=== PATIENT | female | born 1955 | race Caucasian/White ===

== ENCOUNTER → 2020-06-30 11:52 | Outpatient (BNVA) | payer OTHER, SELFPAY | PROVIDERS: Family Provider Family Medicine; Visit Provider Nurse Practitioner Family | DX: Z20.828 Contact with and (suspected) exposure to other viral communicable diseases (principal) | CPT/HCPCS: 87635 ==

== ENCOUNTER 2020-07-13 07:59 | Outpatient (CLI) | payer OTHER, SELFPAY ==
--- NOTE | 2020-07-13 08:03 | MM_ITS ---
WS: [id number] BILATERAL DIGITAL SCREENING MAMMOGRAPHY WITH CAD CLINICAL INFORMATION: SCREENING HISTORY: Screening mammogram. No current complaints. COMPARISON: TECHNIQUE: Bilateral CC and MLO views. FINDINGS: The breasts are composed of heterogeneous fibroglandular density tissue, which can limit the detectio n of small underlying mass lesions. 6 mm asymmetric density posterior depth at the chest wall best se en on the cc view outer right breast. Recommend spot compression views and ultrasound for further ibis luation. Left breast is unchanged. Incidental benign calcifications. MM/[place] [id number] IMPRESSION: BI-RADS: 0-Incomplete: Need additional imaging evaluation FOLLOW UP: Need Additional Imaging RECOMMEND DIAGNOSTIC MAMMOGRAPHY WITH SPOT COMPRESSION VIEWS AND ULTRASOUND RIG HT BREAST
== END 2020-07-13 08:00 | disposition home or self-care (01) ==
PROVIDERS: PCP Family Medicine; Visit Provider Family Medicine
DX: Z12.31 Encounter for screening mammogram for malignant neoplasm of breast (principal); N64.89 Other specified disorders of breast
CPT/HCPCS: 77067

== ENCOUNTER 2020-08-08 12:02 | Outpatient (CLI) | payer OTHER, SELFPAY ==
--- NOTE | 2020-08-08 12:08 | US_ITS ---
WS: [id number] RIGHT DIGITAL MAMMOGRAPHY WITH CAD CLINICAL INFORMATION: ABNORMAL MAMMOGRAM COMPARISON: July 13, 2020 TECHNIQUE: 2 views of the right breast were obtained. FINDINGS: The right breast is composed of heterogeneous fibroglandular density tissue, which can limit the dete ction of small underlying mass lesions. Stable 6 mm asymmetric density posterior depth chest wall bes t seen on the cc view. This is unchanged. Ultrasound is pending. ULTRASOUND BREAST RIGHT TECHNIQUE: Ultrasound right breast focused area of concern. CLINICAL INFORMATION: ABNORMAL MAMMOGRAM COMPARISON: None. FINDINGS: Ultrasound right breast at the 6 clock position.. Hypoechoic small lesion at the 8:00 position consis tent with an incidental cyst with through transmission. This measures 4 x 3 mm. This is benign. No ot her suspicious abnormality. US/US breast RT limited* [id number] IMPRESSION: BI-RADS: 2-Benign FOLLOW UP: 1 Year Follow-up Recommend return to annual screening mammography.
== END 2020-08-08 12:03 | disposition home or self-care (01) ==
LOC: RADSHAW 12:07
PROVIDERS: PCP Family Medicine; Visit Provider Family Medicine
DX: R92.8 Other abnormal and inconclusive findings on diagnostic imaging of breast (principal)
CPT/HCPCS: 76642; 77065

== ENCOUNTER 2020-09-13 08:52 | Outpatient (CLI) | payer OTHER, SELFPAY ==
--- NOTE | 2020-09-13 09:15 | FL_ITS ---
WS: [id number] ESOPHAGRAM WITH FLUOROSCOPY HISTORY: Dysphagia and choking. COMPARISON: None available. FLUOROSCOPY TIME: 1.7 minutes. Esophagus and swallowing function: Patient swallowed the barium mixture without difficulty. No strict ures or mucosal abnormalities are identified. There are osteophytes encroaching into the posterior ce rvical esophagus seen on the lateral projection at C5-C7. Patient swallowed the barium tablet without difficulty. Gastroesophageal reflux: There is significant reflux to the level of the clavicular heads. Hiatal hernia: Moderate-sized reducible hiatal hernia. FL/FL barium swallow [id number] IMPRESSION: 1. Large amount of gastroesophageal reflux to the clavicular heads. 2. Moderate reducible hiatal hernia.
== END 2020-09-13 08:53 | disposition home or self-care (01) ==
LOC: RADWPI 08:56
PROVIDERS: PCP Family Medicine; Visit Provider Otolaryngology
DX: T17.908A Unspecified foreign body in respiratory tract, part unspecified causing other injury, initial encounter (principal); R13.10 Dysphagia, unspecified; K21.9 Gastro-esophageal reflux disease without esophagitis; X58.XXXA Exposure to other specified factors, initial encounter; K44.9 Diaphragmatic hernia without obstruction or gangrene
CPT/HCPCS: 74220

== ENCOUNTER 2020-12-14 23:12 | Emergency (ER) | payer OTHER, SELFPAY ==
[2020-12-14 23:14] VITALS: BP 164/92; PULSE 86; RESP 22; TEMP 36.8; O2SAT 97; BMI 34.2
--- NOTE | 2020-12-14 23:35 | W.ED.ABDPA2 ---
HPI - Abdominal Pain General: Chief Complaint: Abdominal Pain Stated Complaint: stomach pain Time Seen by Provider: 12/14/20 23:14 Source: patient Mode of arrival: ambulatory Limitations: no limitations History of Present Illness: HPI narrative: Patient is a nice 65-year-old female who presents to ED today along with her for complaints of epigastric abdominal pain. Patient tells me she began noticing some epigastric pain around 4pm when she got off work. She states by the time she got home around 4:30 pain had become quite uncomfortable. She states she does have a history of acid reflux that she believes is secondary to a hiatal hernia so treated with antacids without relief. She is reporting pain that radiates up into her substernal chest (as she points along her esophagus). She has nausea with no vomiting. No changes to bowel movements. No fevers. No previous abdominal surgeries. She feels like her acid reflux is progressively worsening. Denies shortness of breath or difficulty breathing. MD elicited complaint: abdominal pain Pertinent past history: other (acid reflux) Onset (ago): hour(s) Pain Consistency: constant Location: Epigastric Severity: moderate Quality: sharp Migration to: other (chest) Exacerbating factors: nothing Relieving factors: nothing Associated Symptoms: Reports no associated symptoms and nausea; Denies change in stool character, chills, diarrhea, dysuria, fever(s), heartburn, hematemesis, syncope and vomiting Treatments prior to arrival: antacids Related Data: Patient : No Review of Systems Const: Denies: fever(s), chills, body aches, fatigue or malaise Eyes: Denies: change in vision or blurry vision ENMT: Denies: throat pain or odynophagia Card: Reports: chest pain; Denies: palpitations, irregular heart rhythm, edema, swelling of feet/ankles, lightheadedness, syncope, pre-syncope, dyspnea on exertion, orthopnea, leg pain with exertion or acrocyanosis Resp: Denies: dyspnea, productive cough or pain on inspiration GI: Reports: abdominal pain and nausea; Denies: vomiting, hematemesis, heartburn, diarrhea or change in stool character : Denies: flank pain or dysuria Musc: Denies: neck pain, back pain or joint pain Skin/Breast: Denies: rash Neuro: Denies: headache(s), numbness in extremities, weakness in extremities or sensory changes PFS ED PFSH: Medical History History of gastroesophageal reflux (GERD) Family History Mother Hypertension Diabetes Denies family history of Dementia Social History Smoking and tobacco status: never smoked Alcohol intake: never Special ema needs: No Physical Exam Const: COMMON NORMALS: no acute distress, average body habitus, patient oriented x3, no limitations and alert GENERAL APPEARANCE: cooperative ORIENTATION/CONSCIOUSNESS: Yes awake Chest: COMMONS NORMALS: normal inspection of the chest and normal palpation of entire chest wall Resp: COMMON NORMALS: normal respiratory effort and clear to auscultation bilaterally AUSCULTATION: clear to auscultation bilaterally Cardio: COMMON NORMALS: regular rate and regular rhythm RATE: regular rate RHYTHM: regular rhythm GI: COMMON NORMALS: Normal to inspection, nondistended, normoactive bowel sounds present, Soft to palpation, No hepatosplenomegaly present and no masses PALPATION: Yes Soft to palpation, Yes Tenderness to palpation present (GI) (upper abdomen; mild RUQ but mainly to epigastric) and Yes No hepatosplenomegaly present : COMMON NORMALS: Yes no CVA tenderness BLADDER/KIDNEY EXAM: Yes no CVA tenderness Back/Pelvis: COMMON NORMALS: no CVA tenderness Neuro: COMMON NORMALS: patient oriented x3 SENSORIUM/ORIENTATION: Yes alert Course ED course: Patient states she feels much better after IV meds and GI cocktail. Still awaiting a few labs and CT imaging. Vital Signs: Vital signs: Vital Signs Temperature 98.2 F 12/14/20 23:14 Pulse Rate 84 12/15/20 03:39 Respiratory Rate 19 H 12/15/20 03:39 Blood Pressure 137/80 12/15/20 03:39 Pulse Oximetry 97 12/15/20 03:39 MDM - Abdominal Pain MDM Narrative: Medical decision making narrative: Patient feels much better after IV pain meds/nausea meds and a GI cocktail. Physical exam reveals most of her tenderness to the epigastric region. She has some very mild RUQ pain without guarding. CT of her abdomen and pelvis shows her hiatal hernia, some incidental findings that she was made aware of, and possibly some pericholecystic fluid. Radiologist stated an acalculous cholecystitis cannot be excluded therefore US gallbladder was obtained. According to US tech her gallbladder was slightly edematous but he did not visualize any sludge, thickened wall, or ductal dilation and states her gallbladder did not appear acutely infected. Clincally her symptoms sound more related to her hiatal hernia/gastritis/GERD. Her vitals are stable. Her white count is 10.8. She has normal LFTs. Cardiac workup initiated due to age and epigastric pain radiating into chest-this was negative. I will go ahead and set patient up with general surgery follow up for her hiatal hernia and the possibility of maybe some biliary colic. Return to ED precautions given. She takes protonix daily. Will add some pepcid and carafate to see if maybe this will help reduce some of her discomfort. Dietary changes/avoidance of certain foods discussed. Lab Data: Attestation: I reviewed the patient's lab results. Labs: Lab Results 12/15/20 12/15/20 12/15/20 Range/Units 00:19 00:19 00:19 WBC 10.8 H (4.0-10.0) 10^3/ uL RBC 5.10 (4.1-5.3) 10^6/u L Hgb 12.6 (11.5-15.3) g/dL Hct 41.3 (37.0-47.0) % MCV 81.0 (81-99) fL MCH 24.7 L (28.0-34.0) pg MCHC 30.5 (30.0-36.0) g/dL RDW 14.3 (12.1-15.1) % Plt Count 385 (130-400) 10^3/c mm MPV 11.0 H (7.4-10.4) fL Neut % (Auto) 68.9 % Lymph % (Auto) 20.9 % [place] % (Auto) 7.4 % Eos % (Auto) 1.9 % Baso % (Auto) 0.6 % Neut # (Auto) 7.43 (1.8-7.7) 10^3/u L Lymph # (Auto) 2.3 (0.8-4.8) 10^3/u L [place] # (Auto) 0.8 (0.2-0.9) 10^3/u L Eos # (Auto) 0.2 (0.0-0.8) 10^3/u L Baso # (Auto) 0.1 (0.0-0.1) 10^3/u L Nucleated RBC % (a uto) 0 % Nucleated RBCs # 0.0 /100WBC Sodium Cancelled Potassium Cancelled Chloride Cancelled Carbon Dioxide Cancelled Anion Gap Cancelled BUN Cancelled Creatinine Cancelled GFR Calculation Cancelled Glucose Cancelled Calculated Osmolal ity Cancelled Calcium Cancelled Total Bilirubin Cancelled AST Cancelled ALT Cancelled Alkaline Phosphata se Cancelled Troponin T Baselin e Cancelled Total Protein Cancelled Albumin Cancelled Globulin Cancelled Lipase Cancelled Urine Color (Yellow) Urine Appearance (CLEAR) Urine pH (5-7) Ur Specific Gravit y (1.005-1.030) Urine Protein (Negative) Urine Glucose (UA) (Normal) Urine Ketones (Negative) Urine Blood (Negative) Urine Nitrate (Negative) Urine Bilirubin (Negative) Urine Urobilinogen (Negative) mg/dL Ur Leukocyte Jailyn ase (Negative) 12/15/20 12/15/20 12/15/20 Range/Units 00:19 01:03 01:03 WBC (4.0-10.0) 10^3/ uL RBC (4.1-5.3) 10^6/u L Hgb (11.5-15.3) g/dL Hct (37.0-47.0) % MCV (81-99) fL MCH (28.0-34.0) pg MCHC (30.0-36.0) g/dL RDW (12.1-15.1) % Plt Count (130-400) 10^3/c mm MPV (7.4-10.4) fL Neut % (Auto) % Lymph % (Auto) % [place] % (Auto) % Eos % (Auto) % Baso % (Auto) % Neut # (Auto) (1.8-7.7) 10^3/u L Lymph # (Auto) (0.8-4.8) 10^3/u L [place] # (Auto) (0.2-0.9) 10^3/u L Eos # (Auto) (0.0-0.8) 10^3/u L Baso # (Auto) (0.0-0.1) 10^3/u L Nucleated RBC % (a uto) % Nucleated RBCs # /100WBC Sodium 137 Potassium 4.2 Chloride 103 Carbon Dioxide 22 Anion Gap 16.2 BUN 25 H Creatinine 1.0 H GFR Calculation 56.0 L Glucose 128 H Calculated Osmolal ity 290 Calcium 8.9 Total Bilirubin 0.3 AST 16 ALT 13 Alkaline Phosphata se 93 Troponin T Baselin e 6 Total Protein 7.3 Albumin 4.1 Globulin 3.2 Lipase 48 Urine Color Yellow (Yellow) Urine Appearance Clear (CLEAR) Urine pH 7 (5-7) Ur Specific Gravit y 1.010 (1.005-1.030) Urine Protein Neg (Negative) Urine Glucose (UA) Norm (Normal) Urine Ketones Negative (Negative) Urine Blood Neg (Negative) Urine Nitrate Negative (Negative) Urine Bilirubin Neg (Negative) Urine Urobilinogen Norm (Negative) mg/dL Ur Leukocyte Jailyn ase Negative (Negative) Imaging Data ^: CXR: Radiologist's impression: [address] [id number] ReportSigned Patient: Blanca Amanda #: [id number]: 1955[facility][id number]/Sex: 65 / FADM Date: 12/14/20Loc: ERRoom/Bed:Attending Dr: Ordering Provider/Ordering MD: Radha Wheat Date of Service: 12/15/20 Procedure(s): XR chest 1V portable [id number] Accession Number(s): [id number] Report Number: [id number] PROCEDURE INFORMATION: Exam: XR Chest Exam date and time: 12/15/2020 12:48 AM Age: 65 years old Clinical indication: Patient HX: Chest pressure. Epigastric pain. ; Additional info: Chest pain TECHNIQUE: Imaging protocol: XR of the chest. Views: 1 view. COMPARISON: No relevant prior studies available. FINDINGS: Lungs: A shallow breath is been obtained with some crowding of the pulmonary vasculature seen as result. Pleural spaces: Unremarkable. No pleural effusion. No pneumothorax. Heart/Mediastinum: Unremarkable. No cardiomegaly. Bones/joints: Unremarkable. XR/XR chest 1V portable [id number] IMPRESSION: There are no acute chest findings. Dictated By:Barak Parker MDSigned By:Barak Parker MDSigned Date/Time:12/15/20119DD/ 012 US gallbladder: My impression: Per Srinivasan Martin, US tech-mildly edematous gallbladder but nothing to suggest acute cholecystitis, no ductal dilation CT Abd/Pel: Radiologist's impression: [address] [id number] [address] Scan Report Signed Patient: Blanca Amanda Unit #: [id number] : 1955 Age/Sex: 65 / F ADM Date: 12/14/20 Loc: ER Room/Bed: Attending Dr: Ordering Provider/Ordering MD: Radha Wheat Date of Service: 12/14/20 Procedure(s): CT abdomen pelvis w con* [id number] Accession Number(s): [id number] Report Number: [id number] PROCEDURE INFORMATION: Exam: CT Abdomen And Pelvis With Contrast Exam date and time: 12/14/2020 12:16 AM Age: 65 years old Clinical indication: Abdominal pain; Prior surgery; Surgery type: Tubal; Patient HX: Epigastric pain; Additional info: Upper abdominal pain TECHNIQUE: Imaging protocol: Computed tomography of the abdomen and pelvis with contrast. Radiation optimization: All CT scans at this facility use at least one of these dose optimization techniques: automated exposure control; mA and/or kV adjustment per patient size (includes targeted exams where dose is matched to clinical indication); or iterative reconstruction. Contrast material: OMNI 300; Contrast volume: 95 ml; Contrast route: INTRAVENOUS (IV); COMPARISON: No relevant prior studies available. RADIATION DOSE METRICS: Total DLP (mGy-cm): 1795.84 FINDINGS: Lungs: There are some strandy and patchy opacities present in the lung bases bilaterally likely representing atelectasis or parenchymal scarring. However, a bilateral basilar pneumonitis cannot be entirely excluded. Liver: An 8.5 mm hypoattenuation lesions seen in the hepatic dome compatible with a simple cyst. Gallbladder and bile ducts: Some low attenuation seen adjacent to the gallbladder possibly representing some pericholecystic fluid. There is no evidence for gallstones. However, acalculous cholecystitis cannot be excluded. Pancreas: Normal. No ductal dilation. Spleen: Normal. No splenomegaly. Adrenal glands: A tiny low-attenuation 7 x 7 x 11 mm nodularity is seen within the left adrenal gland. Kidneys and ureters: Normal. No hydronephrosis. Stomach and bowel: There is a hiatal hernia present measuring 5.1 cm transverse dimension containing a small portion of the proximal stomach. Appendix: The appendix is visualized and is normal in configuration. Intraperitoneal space: Unremarkable. No free air. No significant fluid collection. Vasculature: Unremarkable. No abdominal aortic aneurysm. Lymph nodes: Unremarkable. No enlarged lymph nodes. Urinary bladder: Unremarkable as visualized. Reproductive: Unremarkable as visualized. Bones/joints: Unremarkable. No acute fracture. Soft tissues: There is a small Bochdalek's hernia seen in the right posteromedial costophrenic recess containing fat. CT/CT abdomen pelvis w con* [id number] IMPRESSION: 1. Low attenuation seen surrounding the gallbladder possibly representing some pericholecystic fluid. Acalculous cholecystitis cannot be excluded. 2. Hiatal hernia containing a small portion of the proximal stomach 3. Probable simple hepatic cyst in the hepatic dome measuring 8.5 mm. No further workup needed. 4. Tiny low-attenuation left adrenal nodularity measuring up to 11 mm. Consider 12 month follow-up adrenal CT. (Reference: Mary) 5. Strandy patchy opacity seen in the lung bases likely represents atelectasis versus parenchymal scarring. However, a basilar pneumonitis cannot be entirely excluded. 6. Small Bochdalek's hernia seen in the right posteromedial costophrenic recess containing fat. REFERENCES: Mary AYALA, et al. Management of Incidental Adrenal Masses: A White Paper of the ACR Incidental Findings Committee. J Am Anel Radiol. 2017;14(8):8223-7140. Radiation Dose CTDIVOL = (mGy): DLP = 1795.84 (mGy-cm) Dictated By: Barak Parker MD Signed By: Barak Parker MD Signed Date/Time: 12/15/208 DD/ 5 EKG Data ^: EKG 1: EKG interpretation date: 05/14/21 EKG interpretation time: 23:21 Interpretation: Sinus rhythm Rate [address] elevation or depression changes noted Signed off by Dr. Green Discharge Plan Discharge Patient Disposition: Home Clinical Impression: Hiatal hernia Gastritis Qualifiers: Gastritis type: other gastritis Chronicity: acute Gastritis bleeding: without bleeding Qualified Code(s): K29.00 - Acute gastritis without bleeding Condition: Stable Prescriptions: New Carafate 1 gram tablet 1 g PO TID 28 Days Qty: 84 RF: 0 Pepcid 20 mg tablet 20 mg PO BID 28 Days Qty: 56 RF: 0 hydrocodone-acetaminophen 5-325 mg tablet 1 tab PO Q6H PRN (Reason: pain) Qty: 10 RF: 0 No Action levothyroxine [Euthyrox] 50 mcg tablet 50 mcg PO DAILY RF: 0 enalapril maleate 20 mg tablet 20 mg PO DAILY RF: 0 pantoprazole [Protonix] 40 mg tablet,delayed release (DR/EC) 40 mg PO DAILY RF: 0 montelukast [Singulair] 10 mg tablet 10 mg PO DAILY RF: 0 sertraline [Zoloft] 100 mg tablet 100 mg PO DAILY RF: 0 fluticasone propionate 50 mcg/actuation spray,suspension 2 spray intranasal DAILY 180 Days Qty: 16 RF: 5 Discharge Orders: Discharge ED (Routine); Ordered 12/15/20 Ordered By: Radha Wheat Referrals: Ton Aguirre DO [Primary Care Provider] - Patient Instructions: Hiatal Hernia (ED), Gastritis (ED), Opioid Safety Activity Restrictions/Additional Instructions: [facility] is committed to fighting the nationwide opiate epidemic. We are providing ALL patients with information regarding opiate safety. If you received opiate pain medication during your stay or if you received a prescription for opiate pain medication-please review this handout. If not, you may disregard. Thank you. As we discussed we will have case management set you up to see general surgery in regards to your hiatal hernia as well as possible biliary colic. As we discussed it did not appear like your gallbladder was acutely infected today. Continue your Protonix. We will add Pepcid and Carafate to try to help with your epigastric pain. You need to return to the emergency department for worsening or uncontrollable pain, severe shortness of breath or difficulty breathing, fevers, or any other concerns you may have. I hope you begin to feel better soon. Coding Level of Care Code ED Manager Of Case Management for [place] Fwd Exam Detailed
--- NOTE | 2020-12-14 23:41 | CTR_ITS ---
PROCEDURE INFORMATION: Exam: CT Abdomen And Pelvis With Contrast Exam date and time: 12/14/2020 12:16 AM Age: 65 years old Clinical indication: Abdominal pain; Prior surgery; Surgery type: Tubal; Patient HX: Epigastric pain; Additional info: Upper abdominal pain TECHNIQUE: Imaging protocol: Computed tomography of the abdomen and pelvis with contrast. Radiation optimization: All CT scans at this facility use at least one of these dose optimization techniques: automated exposure control; mA and/or kV adjustment per patient size (includes targeted exams where dose is matched to clinical indication); or iterative reconstruction. Contrast material: OMNI 300; Contrast volume: 95 ml; Contrast route: INTRAVENOUS (IV); COMPARISON: No relevant prior studies available. RADIATION DOSE METRICS: Total DLP (mGy-cm): 1795.84 FINDINGS: Lungs: There are some strandy and patchy opacities present in the lung bases bilaterally likely representing atelectasis or parenchymal scarring. However, a bilateral basilar pneumonitis cannot be entirely excluded. Liver: An 8.5 mm hypoattenuation lesions seen in the hepatic dome compatible with a simple cyst. Gallbladder and bile ducts: Some low attenuation seen adjacent to the gallbladder possibly representing some pericholecystic fluid. There is no evidence for gallstones. However, acalculous cholecystitis cannot be excluded. Pancreas: Normal. No ductal dilation. Spleen: Normal. No splenomegaly. Adrenal glands: A tiny low-attenuation 7 x 7 x 11 mm nodularity is seen within the left adrenal gland. Kidneys and ureters: Normal. No hydronephrosis. Stomach and bowel: There is a hiatal hernia present measuring 5.1 cm transverse dimension containing a small portion of the proximal stomach. Appendix: The appendix is visualized and is normal in configuration. Intraperitoneal space: Unremarkable. No free air. No significant fluid collection. Vasculature: Unremarkable. No abdominal aortic aneurysm. Lymph nodes: Unremarkable. No enlarged lymph nodes. Urinary bladder: Unremarkable as visualized. Reproductive: Unremarkable as visualized. Bones/joints: Unremarkable. No acute fracture. Soft tissues: There is a small Bochdalek's hernia seen in the right posteromedial costophrenic recess containing fat. CT/CT abdomen pelvis w con* [id number] IMPRESSION: 1. Low attenuation seen surrounding the gallbladder possibly representing some pericholecystic fluid. Acalculous cholecystitis cannot be excluded. 2. Hiatal hernia containing a small portion of the proximal stomach 3. Probable simple hepatic cyst in the hepatic dome measuring 8.5 mm. No further workup needed. 4. Tiny low-attenuation left adrenal nodularity measuring up to 11 mm. Consider 12 month follow-up adrenal CT. (Reference: Mary) 5. Strandy patchy opacity seen in the lung bases likely represents atelectasis versus parenchymal scarring. However, a basilar pneumonitis cannot be entirely excluded. 6. Small Bochdalek's hernia seen in the right posteromedial costophrenic recess containing fat. REFERENCES: Mary AYALA, et al. Management of Incidental Adrenal Masses: A White Paper of the ACR Incidental Findings Committee. J Am Anel Radiol. 2017;14(8):8828-7236. Radiation Dose CTDIVOL = (mGy): DLP = 1795.84 (mGy-cm)
[2020-12-15] MEDS: lidocaine 2% viscous 15 ML, aluminum-mag hydrox-simethicon 30 ML, sucralfate oral liq 1 GM PO (00:20)
[2020-12-15] MEDS: morphine 4 mg/mL SDV 1 mL IVP (00:23)
[2020-12-15] MEDS: ondansetron 2 mg/ML SDV 2 mL 4 MG IVP (00:23)
[2020-12-15 00:36] LABS: Add Urine Microscopic? NO; Charge for UA Resulting for Rev
[2020-12-15 00:38] LABS: Basophils # 0.1 10^3/uL (0.0-0.1); Basophils % 0.6 %; Eosinophils # 0.2 10^3/uL (0.0-0.8); Eosinophils % 1.9 %; Hematocrit 41.3 % (37.0-47.0); Hemoglobin 12.6 g/dL (11.5-15.3); Lymphocytes # 2.3 10^3/uL (0.8-4.8); Lymphocytes % 20.9 %; Mean Corpuscular HGB Conc 30.5 g/dL (30.0-36.0); Mean Corpuscular Hemoglobin 24.7 pg (28.0-34.0); Monocytes # 0.8 10^3/uL (0.2-0.9); Monocytes % 7.4 %; Neutrophils # 7.43 10^3/uL (1.8-7.7); Neutrophils % 68.9 %; Nucleated Red Blood Cells % 0 %; Platelet Count 385 10^3/cmm (130-400); Red Cell Distribution Width 14.3 % (12.1-15.1); White Blood Count 10.8 10^3/uL (4.0-10.0)
[2020-12-15 00:45] LABS: Bilirubin Urine Neg (Negative); Blood Urine Neg (Negative); Glucose Urine UA Norm (Normal); Ketones Urine Negative (Negative); Leukocyte Esterase Urine Negative (Negative); Nitrate Urine Negative (Negative); Protein Urine Neg (Negative); Urine Appearance Clear (CLEAR); Urine Color Yellow (Yellow); Urobilinogen Urine Norm (Negative); pH Urine 7 (5-7)
--- NOTE | 2020-12-15 00:46 | XRR_ITS ---
PROCEDURE INFORMATION: Exam: XR Chest Exam date and time: 12/15/2020 12:48 AM Age: 65 years old Clinical indication: Patient HX: Chest pressure. Epigastric pain. ; Additional info: Chest pain TECHNIQUE: Imaging protocol: XR of the chest. Views: 1 view. COMPARISON: No relevant prior studies available. FINDINGS: Lungs: A shallow breath is been obtained with some crowding of the pulmonary vasculature seen as result. Pleural spaces: Unremarkable. No pleural effusion. No pneumothorax. Heart/Mediastinum: Unremarkable. No cardiomegaly. Bones/joints: Unremarkable. XR/XR chest 1V portable [id number] IMPRESSION: There are no acute chest findings.
[2020-12-15 00:57] VITALS: BP 126/79; PULSE 77; RESP 18; O2SAT 95
[2020-12-15 01:24] LABS: Alanine Aminotransferase 13 U/L (0-33); Albumin Level 4.1 g/dL (3.5-5.2); Alkaline Phosphatase 93 IU/L (35-105); Anion Gap 16.2 (5-19); Aspartate Amino Transferase 16 U/L (0-32); Blood Urea Nitrogen 25 mg/dL (8-23); Calcium 8.9 mg/dL (8.5-10.5); Carbon Dioxide 22 mmol/L (22-29); Chloride 103 mmol/L (98-107); Globulin 3.2 g/dL (1.3-4.6); Glucose 128 mg/dL (65-115); Lipase 48 U/L (13-60); Osmolality Calculated 290 mOsm/kg (285-295); Potassium 4.2 mmol/L (3.5-5.1); Sodium 137 mmol/L (136-145); Total Bilirubin 0.3 mg/dL (0.15-1.2); Total Protein 7.3 g/dL (6.6-8.7)
[2020-12-15 01:29] LABS: Troponin(5th) Baseline 6 ng/L (0-10)
[2020-12-15] MEDS: iohexol 300 mg/mL 100 mL Btl IV (01:39)
--- NOTE | 2020-12-15 02:10 | USR_ITS ---
PROCEDURE INFORMATION: Exam: US Abdomen, Limited; Right Upper Quadrant Exam date and time: 12/15/2020 2:31 AM Age: 65 years old Clinical indication: Abdominal pain; Acute; Additional info: Ruq pain; Abnormal CT gallbladder finding TECHNIQUE: Imaging protocol: US abdomen. Real time ultrasound with image documentation. Limited exam focused on the right upper quadrant. COMPARISON: CT abdomen pelvis w con* [id number] 12/15/2020 1:37 AM FINDINGS: Liver: Normal. No masses. Gallbladder: There is moderate gallbladder wall thickening measuring 5.2 mm. There is no evidence for gallstones. There is a positive sonographic Stallworth sign elicited however. These findings could represent acalculous cholecystitis. Common bile duct: Normal. No stones. No dilation. Pancreas: Visualized pancreas is unremarkable. Right kidney: Normal. No mass. No hydronephrosis. US/US gall bladder [id number] IMPRESSION: Thickened gallbladder wall measuring up to 5.2 mm and positive sonographic Stallworth sign, findings that could represent acalculous cholecystitis.
--- NOTE | 2020-12-15 03:37 | PC.NURSE ---
EKG completed in triage and given to Dr. Green
[2020-12-15 03:39] VITALS: BP 137/80; PULSE 84; RESP 19; O2SAT 97
--- NOTE | 2020-12-17 09:25 | DCPLANNER ---
authorization manager had message to schedule a follow up appointment for patient with general surgery for hiatal hernia, possible biliary colic. authorization manager emailed patients information to both Dorie and Kirsten at [facility] General Surgery. Patients information will be printed and reviewed. Clinic will call patient with appointment information.
--- NOTE | 2020-12-18 07:56 | DCPLANNER ---
Patient has a follow up appointment scheduled for Friday, December 25, [address] at 8:[address] River. Clinic will call patient with appointment information.
--- NOTE | 2021-01-17 15:09 | DCPLANNER ---
Patient had a follow up appointment scheduled for 12.25.[address] River at general surgery - patient did attend appointment.
== END 2020-12-15 03:39 | disposition home or self-care (01) ==
PROVIDERS: Emergency Medicine; Emergency Provider Physician Assistant; PCP Family Medicine
DX: K44.9 Diaphragmatic hernia without obstruction or gangrene (principal); K29.00 Acute gastritis without bleeding
CPT/HCPCS: 36415; 71045; 74177; 76705; 80053; 81003; 83690; 84484; 85025; 96374; 96375; 99284; J2270; J2405; Q9967

== ENCOUNTER → 2021-01-02 13:11 | Outpatient (BNVA) | payer OTHER, SELFPAY | PROVIDERS: PCP Family Medicine; Visit Provider Surgery | DX: K81.9 Cholecystitis, unspecified (principal); Z20.822 Contact with and (suspected) exposure to COVID-19 | CPT/HCPCS: 87635 ==

== ENCOUNTER 2021-01-07 07:28 | Day surgery (SDC) | payer OTHER, SELFPAY ==
[2021-01-04 14:56] VITALS: BMI 34.0
[2021-01-07] VITALS (14 sets, daily range): BP systolic 87–145; BP diastolic 49–89; PULSE 51–90; RESP 12–20; TEMP 36.1–37.1; O2SAT 91–98
--- NOTE | 2021-01-07 07:54 | W.PM.OPSUD ---
Surgery/Procedure H&P Update DATE OF PROCEDURE: January 07, 2021 DATE H&P PERFORMED: 12/25/20 H&P UPDATE INFORMATION: I have reviewed H&P completed within last 30 days, I have examined patient prior to procedure and No changes to prior documentation PREOP DIAGNOSIS: Acalculous cholecystitis, dysphagia PLANNED PROCEDURE: Operation Date: 01/07/21 08:50 Proposed Procedures p EGD Dilation W/ Balloon [id number] R13.10 K81.9(Not Applicable) - Gabino River MD s Laparoscopic Cholecystectomy(Not Applicable) - Gabino River MD
[2021-01-07] MEDS: sodium chloride 0.9% 1,000 ML 30 ML IV (07:55)
--- NOTE | 2021-01-07 08:08 | ANES.PREANE2 ---
Pre-Anesthetic Assessment Pre-Anesthetic Assessment: Height/Weight: Height 1.6 m Weight 87.09 kg Temp Pulse Resp BP Pulse Ox 98.8 F 90 18 145/89 98 01/07/21 07:37 01/07/21 07:37 01/07/21 07:37 01/07/21 07:37 01/07/21 07:37 Preop Diagnosis: Acalculous cholecystitis, dysphagia Proposed Procedure: Operation Date: 01/07/21 08:50 Proposed Procedures p EGD Dilation W/ Balloon [id number] R13.10 K81.9(Not Applicable) - Gabino River MD s Laparoscopic Cholecystectomy(Not Applicable) - Gabino River MD Familial anesthetic complications: None Was Beta Sandra taken within 24 hours: N/A Was Clonidine taken within 24 hours: N/A Last intake: Intake Last Liquid Date 01/06/21 Last Liquid Time 23:00 Last Solid Date 01/06/21 Last Solid Time 23:00 Social: Social History: No alcohol and No tobacco Exam: Pre-Anes Outpt Exam: alert, oriented x 3, clear to auscultation bilaterally and regular rate & rhythm Airway: Cervical ROM: WNL MP: 3 Dentition: Other (1 missing on bottom) GI: GI: GERD (not currently having any gerd) Metabolic: Metabolic: Thyroid Anesthetic Plan: ASA status: 2 Anesthesia: General Risk of > 500 ml blood loss (7ml/kg in children): No Meds/Allergies Current Medications: Current Medications Generic Name Dose Route Start Last Admin Trade Name Freq PRN Reason Stop Dose Admin Sodium Chloride 1,000 mls @ 30 ml s/hr 01/07/21 07:45 01/07/21 07:55 Sodium Chloride 0.9% IV 01/08/21 07:44 30 mls/hr .Q24H RHONDA Administration PFSH Anesthesia PFSH: Medical History Depression GERD (gastroesophageal reflux disease) HTN (hypertension), benign Hypothyroidism Surgical History H/O tubal ligation History of colonoscopy Family History Mother Hypertension Diabetes Denies family history of Dementia Social History Smoking and tobacco status: never smoked Alcohol intake: never Special ema needs: No Data Anesthesia Cardiac Studies: No Data to Display
[2021-01-07] MEDS: acetaminophen 1,000 MG/100 ML PIGGYBACK 400 MG IV (10:05)
[2021-01-07] MEDS: fentaNYL 50 mcg/mL INJ 2mL IVP (10:12)
[2021-01-07] MEDS: ketorolac 30 mg/mL INJ IVP (10:18)
--- NOTE | 2021-01-07 10:18 | XRR_ITS ---
PROCEDURE INFORMATION: Exam: XR Chest Exam date and time: 01/07/2021 10:24 AM Age: 65 years old Clinical indication: Device placement; Other: Post operative edg dilation; Prior surgery; Surgery date: Post-operative (0-2 days); Additional info: Post operative egd dilation TECHNIQUE: Imaging protocol: XR of the chest. Views: 1 view. COMPARISON: CR (CHEST, ) 12/15/2020 12:45 AM FINDINGS: Lungs: Emphysematous change, interstitial prominence, and mild airspace disease. Pleural spaces: No pleural effusion. Heart/Mediastinum: Cardiac silhouette upper limits of normal in size. Bones/joints: Degenerative change. XR/XR chest 1V portable [id number] IMPRESSION: Emphysematous change, interstitial prominence, and mild airspace disease.
--- NOTE | 2021-01-07 10:19 | SUR.PHASEI ---
1010- NOTIFIED DR PANDYA OF PERSISTENT PAIN WITH HYPOTENSION, BRADYCARDIA, AND DECREASED RESPIRATORY EFFORT. HE PRESENTS TO THE BEDSIDE, NEW ORDERS RECEIVED.
[2021-01-07] MEDS: HYDROcodone-acetaminophen 5-325 mg Tablet 1 TAB PO (10:56)
[2021-01-07] MEDS: famotidine 20 mg/2 mL INJ IVP (11:39)
--- NOTE | 2021-01-07 14:26 | ANE.PACU2 ---
Inpatient post-anesthesia follow up: Airway intact: Yes Vital signs: Temperature 97.8 F Pulse Rate 60 Respiratory Rate 16 Blood Pressure 104/68 Pulse Oximetry 98 Oxygen Delivery Me thod Nasal Cannula Oxygen Flow Rate 3 Fraction of Inspir ed Oxygen Hydration adequate: Yes Nausea and vomiting: No Pain level: 2 Mental status: Baseline
--- NOTE | 2021-01-07 16:15 | PM.OP ---
Operative Report Date of procedure: January 07, 2021 Pre-op Diagnosis: 1. Acalculous cholecystitis 2. Dysphagia Post-op Diagnosis: 1. A calculus cholecystitis 2. Mild Schatzki ring at 35 cm 3. Small hiatal hernia Procedure Done: Laparoscopic cholecystectomy Esophagogastroduodenoscopy with biopsy Esophagogastroduodenoscopy with balloon dilation less than 30 mm Specimens removed/disposition: 1. Gallbladder 2. Gastric antral biopsy 3. Distal esophagea stricture l biopsy Surgeon: Gabino River Anesthesia: General Condition: stable Disposition: PACU Procedure: The patient was taken to the operating room and was intubated under general anesthesia. After the antibiotic had been administered, the abdomen was prepped and draped in a sterile manner. Using a #15 blade, a 1 centimeter infraumbilical curvilinear incision was made and using an open Guille technique the peritoneal cavity was entered. A 10 millimeter port was placed and 15 millimeters of pneumoperitoneum was created. A 10 millimeter, 30 degrees scope was then introduced. Three 5 millimeter ports were placed in the epigastric, midclavicular and the anterior axillary line two fingerbreadths below the costal margin on the right side under the direct visualization. The omentum was adherent to the fundus and body of the gallbladder which was divided using electrocautery. Ratcheted forceps were introduced into the lateral most port and was used to retract the fundus of the gallbladder cephalad and using forceps the infundibulum of the gallbladder was retracted laterally. Using L-hook cautery the peritoneum overlying the Calot's triangle was opened medially and laterally until the cystic duct and the cystic artery were skeletonized. There was significant inflammation around the Calot's triangle which made dissection difficult. Dissection was carried along the body of the gallbladder and after ensuring critical view of safety, 4 clips applied on the cystic duct and 3 clips applied on the cystic artery and cut leaving, 3 clips on the remaining portion of the duct and 2 clips on the remaining portion of the artery. The rest of the gallbladder was dissected off the liver using L-hook cautery. There was no bleeding or bile leaking noted from the gallbladder fossa and the clips appeared to be in place. An EndoCatch bag was introduced to remove the gallbladder. All the ports were removed under direct visualization and there was no bleeding noted from the port sites. The fascia of the umbilicus was closed using [id number] 0 Vicryl sutures and the subcutaneous tissue was approximated using 3-0 Vicryl sutures. The skin at all four ports were closed using 4-0 Monocryl and Dermabond. A total of 10 millimeters of 0.5% Marcaine was infiltrated around the port sites. A bite-block was placed and gastroscope was introduced and advanced up to second portion of the duodenum and slowly withdrawn. Duodenum second portion: Normal Duodenal bulb: Normal Stomach Fundus: Small hiatal hernia seen on retroflexion body: Normal Antrum: Mild nonerosive gastritis, biopsied with cold biopsy forceps Pylorus: Normal Esophagus GE junction: Z-line at 35 cm there was a distal esophageal stricture which is serially dilated with the balloon dilator under direct visualization up to 20 mm. Biopsies were obtained from the distal esophageal stricture using cold biopsy forceps Rest of esophagus: Normal The patient was extubated and transferred to recovery room in stable condition.
== END 2021-01-07 12:08 | disposition home or self-care (01) ==
PROVIDERS: PCP Family Medicine; Visit Provider Surgery
PROC: (CPT 43239; principal; 2021-01-07 08:50)
PROC: 0FT44ZZ Resection of Gallbladder, Percutaneous Endoscopic Approach (ICD-10-PCS; CPT 47562; 2021-01-07 08:50)
DX: K81.1 Chronic cholecystitis (principal); K29.50 Unspecified chronic gastritis without bleeding; R13.10 Dysphagia, unspecified; K22.2 Esophageal obstruction; K44.9 Diaphragmatic hernia without obstruction or gangrene; F32.9 Major depressive disorder, single episode, unspecified; K21.9 Gastro-esophageal reflux disease without esophagitis; I10 Essential (primary) hypertension; E03.9 Hypothyroidism, unspecified
CPT/HCPCS: 43239; 43249; 47562; 71045; 88304; 88305; 96365; J0690; J1100; J1885; J2250; J2405; J2704; J2710; J3010; J3490; J7030

== ENCOUNTER 2021-02-25 09:14 | Outpatient (CLI) | payer OTHER, SELFPAY ==
--- NOTE | 2021-02-25 09:27 | XR_ITS ---
WS: [id number] XR shoulder RT min 2V* [id number] REASON FOR EXAM: R SHOULDER PAIN FINDINGS: The acromial clavicular joint is well-maintained with normal joint space and no significant subarticu lar sclerosis or spurring. Glenohumeral joint interval appears normal. The acromial process has somewhat configuration directed inferiorly and there is spurring along the i nferior surface of the acromial process. Subtle degenerative changes in the rotator cuff insertion si te. No other focal bone or joint abnormality. XR/XR shoulder RT min 2V* [id number] IMPRESSION: Possible rotator cuff tendinopathy.
--- NOTE | 2021-02-25 09:27 | XR_ITS ---
WS: [id number] XR cervical spine 3V* [id number] REASON FOR EXAM: NECK PAIN FINDINGS: No significant focal vertebral body abnormality. There is mild narrowing of the intervertebral disc spaces throughout the cervical spine this is most notable at C5-C6. At C4-C5 there is mild anterior subluxation of C4 on C5. Moderate anterior osteophyte at C6-C7. Moderate degenerative change in the facet joints at C6-C7. XR/XR cervical spine 3V* [id number] IMPRESSION: Multilevel degenerative disc disease as above.
== END 2021-02-25 09:15 | disposition home or self-care (01) ==
LOC: RAD 09:18
PROVIDERS: PCP Family Medicine; Visit Provider Family Medicine
DX: M25.511 Pain in right shoulder (principal); M50.30 Other cervical disc degeneration, unspecified cervical region
CPT/HCPCS: 72040; 73030

== ENCOUNTER 2021-03-05 12:00 | Outpatient (CLI) | payer OTHER, SELFPAY | END 2021-03-05 12:01 | disposition home or self-care (01) | LOC: SLEEP 03-06 10:39 | PROVIDERS: PCP Family Medicine; Visit Provider Family Medicine | DX: G47.33 Obstructive sleep apnea (adult) (pediatric) (principal) | CPT/HCPCS: G0399 ==

== ENCOUNTER 2021-04-02 12:43 | Outpatient (CLI) | payer OTHER, SELFPAY ==
--- NOTE | 2021-04-02 13:00 | MR_ITS ---
WS: [id number] MRI RIGHT SHOULDER NONCONTRAST TECHNIQUE: Sagittal T2, coronal T1, T2 and proton density imaging. Axial gradient PDE imaging. CLINICAL INFORMATION: SHOULDER PAIN, RIGHT COMPARISON: None. FINDINGS: Mild degenerative arthritis at the AC joint. Mild edema at the AC joint with a small amount of subacr omial/subdeltoid fluid. Subacromial spurring with slight impingement on the distal supraspinatus. Ten dinopathy involving the distal supraspinatus with mild chronic thinning. Tiny intrasubstance and inse rtional tear involving the distal supraspinatus. No full-thickness tears. No tendon retraction. Normal infraspinatus. Normal teres minor. Normal subscapularis. Normal biceps tendon in the bicipital groove. Normal bone marrow signal in the glenoid and humerus. Glenoid labrum appears grossly normal. MR/MR shoulder RT wo con* [id number] IMPRESSION: 1. Mild degenerative arthritis AC joint with mild downsloping acromion. Slight subacromial spurring. 2. Impingement on the distal supraspinatus with tendinopathy. Small intrasubst ance tear distal supraspinatus with a small insertional tear. No full-thickness tears. 3. Rotator cuff is otherwise normal. 4. Normal biceps tendon in the bicipital groove. 5. No other significant findings.
== END 2021-04-02 12:44 | disposition home or self-care (01) ==
PROVIDERS: PCP Family Medicine; Visit Provider Family Medicine
DX: M19.011 Primary osteoarthritis, right shoulder (principal); M25.811 Other specified joint disorders, right shoulder
CPT/HCPCS: 73221

== ENCOUNTER → 2021-04-04 14:37 | Outpatient (BNVA) | payer OTHER, SELFPAY | PROVIDERS: PCP Family Medicine; Referring Provider Family Medicine; Visit Provider Orthopaedic Surgery | DX: M47.892 Other spondylosis, cervical region (principal); M47.894 Other spondylosis, thoracic region; M54.2 Cervicalgia | CPT/HCPCS: 72040; 72070 ==

== ENCOUNTER → 2021-04-10 10:07 | Outpatient (BNVA) | payer OTHER, SELFPAY | PROVIDERS: PCP Family Medicine; Referring Provider Orthopaedic Surgery; Visit Provider Anesthesiology Pain Medicine | DX: M48.02 Spinal stenosis, cervical region (principal); M50.90 Cervical disc disorder, unspecified, unspecified cervical region; M47.812 Spondylosis without myelopathy or radiculopathy, cervical region; M67.919 Unspecified disorder of synovium and tendon, unspecified shoulder | CPT/HCPCS: 99203; 99204 ==

== ENCOUNTER 2021-04-17 06:00 | Outpatient (RCR) | payer OTHER, SELFPAY | END 2021-05-02 23:59 | disposition home or self-care (01) | LOC: SPT 06:00 | PROVIDERS: PCP Family Medicine; Referring Provider Orthopaedic Surgery; Visit Provider Orthopaedic Surgery | DX: S46.011D Strain of muscle(s) and tendon(s) of the rotator cuff of right shoulder, subsequent encounter (principal); X58.XXXD Exposure to other specified factors, subsequent encounter | CPT/HCPCS: 97110; 97161 ==

== ENCOUNTER 2021-04-17 10:02 | Outpatient (CLI) | payer OTHER, SELFPAY ==
--- NOTE | 2021-04-17 10:13 | MR_ITS ---
WS: [id number] MRI CERVICAL SPINE NONCONTRAST TECHNIQUE: Sagittal T1, T2 and STIR imaging. Axial T2, gradient, and fiesta imaging. CLINICAL INFORMATION: CERVICALGIA COMPARISON: MRI May 2009 FINDINGS: Straightening of the normal cervical lordosis. Cord signal is normal. No high-grade central canal loraine rowing. Disc space narrowing C5-6 and C6-7 progressed since 2008. C2-C3: Mild left and no significant right foraminal narrowing. Spinal canal is patent. Mild facet art hropathy. C3-C4: Mild left bony foraminal narrowing. Spinal canal and right foramen are patent. Mild facet arth ropathy. C4-C5: Mild disc osteophytic ridging. Mild left and no significant right foraminal narrowing. Mild fa cet arthropathy. Spinal canal is patent. C5-C6: Disc osteophyte complex with endplate ridging. Moderate left and mild right bony foraminal loraine rowing. Moderate facet arthropathy. Spinal canal is patent. C6-C7: Disc osteophyte complex with endplate ridging. Spinal canal is patent. Mild to moderate bilate ral bony foraminal narrowing. C7-T1: Mild disc bulging with endplate ridging. Mild left foraminal narrowing. Spinal canal and right foramen are patent. Visualized brain stem structures: Normal. Prevertebral soft tissues: Normal. MR/MR cervical spin wo con* [id number] IMPRESSION: 1. Straightening of the normal cervical lordosis. Cord signal is normal. No hi gh-grade central canal stenosis. 2. Disc osteophyte complex C5-C6 with slight effacement of ventral thecal sac. Moderate left and mild right bony foraminal narrowing at this level. 3. Disc osteophyte complex C6-7 with mild to moderate bilateral bony foraminal narrowing. 4. Degenerative disc disease at C5-6 and C6-7 is progressed compared to 2009.
== END 2021-04-17 10:03 | disposition home or self-care (01) ==
PROVIDERS: PCP Family Medicine; Visit Provider Orthopaedic Surgery
DX: M25.78 Osteophyte, vertebrae (principal); M50.323 Other cervical disc degeneration at C6-C7 level
CPT/HCPCS: 72141

== ENCOUNTER → 2021-04-24 11:03 | Outpatient (BNVA) | payer OTHER, SELFPAY | PROVIDERS: PCP Family Medicine; Visit Provider Anesthesiology Pain Medicine | DX: M48.02 Spinal stenosis, cervical region (principal); M50.90 Cervical disc disorder, unspecified, unspecified cervical region; M47.812 Spondylosis without myelopathy or radiculopathy, cervical region; M67.919 Unspecified disorder of synovium and tendon, unspecified shoulder; M25.511 Pain in right shoulder | CPT/HCPCS: 99214 ==

== ENCOUNTER 2021-05-03 06:00 | Outpatient (RCR) | payer OTHER, SELFPAY | END 2021-06-02 23:59 | disposition home or self-care (01) | LOC: SPT 06:00 | PROVIDERS: PCP Family Medicine; Referring Provider Orthopaedic Surgery; Visit Provider Orthopaedic Surgery | DX: M75.101 Unspecified rotator cuff tear or rupture of right shoulder, not specified as traumatic (principal) | CPT/HCPCS: 97110 ==

== ENCOUNTER → 2021-05-06 13:28 | Outpatient (BNVA) | payer OTHER, SELFPAY | PROVIDERS: PCP Family Medicine; Visit Provider Anesthesiology Pain Medicine | DX: M47.812 Spondylosis without myelopathy or radiculopathy, cervical region (principal); Z87.891 Personal history of nicotine dependence | CPT/HCPCS: 64490; 64491; 64492 ==

== ENCOUNTER → 2021-05-20 10:49 | Outpatient (BNVA) | payer OTHER, SELFPAY | PROVIDERS: PCP Family Medicine; Visit Provider Anesthesiology Pain Medicine | DX: M48.02 Spinal stenosis, cervical region (principal); M50.90 Cervical disc disorder, unspecified, unspecified cervical region; M47.812 Spondylosis without myelopathy or radiculopathy, cervical region; M67.919 Unspecified disorder of synovium and tendon, unspecified shoulder; M25.511 Pain in right shoulder | CPT/HCPCS: 99214 ==

== ENCOUNTER 2021-06-03 06:00 | Outpatient (RCR) | payer OTHER, SELFPAY | END 2021-07-02 23:59 | disposition home or self-care (01) | LOC: SPT 06:00 | PROVIDERS: PCP Family Medicine; Referring Provider Orthopaedic Surgery; Visit Provider Orthopaedic Surgery | DX: M75.101 Unspecified rotator cuff tear or rupture of right shoulder, not specified as traumatic (principal) | CPT/HCPCS: 97110 ==

== ENCOUNTER → 2021-06-10 13:02 | Outpatient (BNVA) | payer OTHER, SELFPAY | PROVIDERS: PCP Family Medicine; Visit Provider Anesthesiology Pain Medicine | DX: M47.812 Spondylosis without myelopathy or radiculopathy, cervical region (principal) | CPT/HCPCS: 64633; 64634; J1030 ==

== ENCOUNTER → 2021-07-01 09:28 | Outpatient (BNVA) | payer OTHER, SELFPAY | PROVIDERS: PCP Family Medicine; Visit Provider Anesthesiology Pain Medicine | DX: M48.02 Spinal stenosis, cervical region (principal); M50.90 Cervical disc disorder, unspecified, unspecified cervical region; M47.812 Spondylosis without myelopathy or radiculopathy, cervical region; M67.919 Unspecified disorder of synovium and tendon, unspecified shoulder; M25.511 Pain in right shoulder | CPT/HCPCS: 99213 ==

== ENCOUNTER 2021-07-17 14:45 | Outpatient (CLI) | payer OTHER, SELFPAY ==
--- NOTE | 2021-07-17 14:57 | MM_ITS ---
WS: [id number] BILATERAL DIGITAL SCREENING MAMMOGRAPHY WITH CAD CLINICAL INFORMATION: SCREENING HISTORY: Screening mammogram. No current complaints. COMPARISON: July 13, 2020 TECHNIQUE: Bilateral CC and MLO views. FINDINGS: Scattered fibroglandular densities bilaterally. Biopsy marker right breast. Punctate and lucent cente red calcifications. Vascular calcification. No suspicious focal mass, asymmetry, calcifications, or a rchitectural distortion. No evidence of malignancy. MM/[place] [id number] IMPRESSION: BI-RADS: 2-Benign FOLLOW UP: 1 Year Follow-up Recommend return to annual screening mammography.
== END 2021-07-17 14:46 | disposition home or self-care (01) ==
LOC: RADWPI 14:53
PROVIDERS: PCP Family Medicine; Visit Provider Family Medicine
DX: Z12.31 Encounter for screening mammogram for malignant neoplasm of breast (principal)
CPT/HCPCS: 77067

== ENCOUNTER 2021-07-24 14:52 | Outpatient (CLI) | payer OTHER, SELFPAY ==
--- NOTE | 2021-07-24 14:54 | XR_ITS ---
WS: [id number] SCREENING DEXA SCAN [employer] CLINICAL INFORMATION: DECREASED BONE DENSITY COMPARISON: None. FINDINGS: The L1-L4 bone mineral density measures 0.991 g/cm2. This corresponds to a T score score of -1.6 and Z score of -0.9. Left femoral neck bone mineral density measures 0.851 g/cm2. This corresponds to a T score of -1.2 an d Z score of -0.7. Right femoral neck bone mineral density measures 0.847 g/cm2. This corresponds to a T score -1.3of an d Z score of -0.7. Mean femoral neck bone mineral density measures 0.849 g/cm2. This corresponds to a T score of -1.3 an d Z score of -0.7. XR/XR DEXA axial skeleton* [id number] IMPRESSION: Osteopenia Patient's FRAX calculated 10 year probability for major osteoporotic fracture i s 9.7 % and osteoporotic hip fracture is 1.3%.
== END 2021-07-24 14:53 | disposition home or self-care (01) ==
PROVIDERS: PCP Family Medicine; Visit Provider Family Medicine
DX: M89.8X9 Other specified disorders of bone, unspecified site (principal); M85.80 Other specified disorders of bone density and structure, unspecified site
CPT/HCPCS: 77080

== ENCOUNTER → 2022-04-23 11:12 | Outpatient (BNVA) | payer OTHER, SELFPAY | PROVIDERS: PCP Family Medicine; Visit Provider Registered Nurse Neonatal Intensive Care | DX: S92.511A Displaced fracture of proximal phalanx of right lesser toe(s), initial encounter for closed fracture (principal); X58.XXXA Exposure to other specified factors, initial encounter; M79.671 Pain in right foot | CPT/HCPCS: 73630 ==

== ENCOUNTER → 2022-06-11 11:16 | Outpatient (BNVA) | payer OTHER, SELFPAY | PROVIDERS: PCP Family Medicine; Visit Provider Family Medicine | DX: J02.9 Acute pharyngitis, unspecified (principal); R50.9 Fever, unspecified; B34.9 Viral infection, unspecified | CPT/HCPCS: 87426 ==

== ENCOUNTER → 2022-06-30 07:55 | Outpatient (BNVA) | payer OTHER, SELFPAY | PROVIDERS: PCP Family Medicine; Visit Provider Clinical Nurse Specialist Adult Health | DX: B34.9 Viral infection, unspecified (principal); J10.1 Influenza due to other identified influenza virus with other respiratory manifestations | CPT/HCPCS: 87400 ==

== ENCOUNTER 2022-07-21 07:47 | Outpatient (CLI) | payer OTHER, SELFPAY ==
--- NOTE | 2022-07-21 07:59 | MM_ITS ---
WS: [id number] BILATERAL SCREENING DIGITAL TOMOSYNTHESIS MAMMOGRAM WITH CAD HISTORY: SCREENING COMPARISON: Prior breast ultrasound 08/08/2020, mammogram 07/17/2021, 08/08/2020 and 07/13/2020 Bilateral CC and MLO views with tomosynthesis and synthetic mammography submitted. Computer aided det ection analyzed. Breast composition: There are scattered areas of fibroglandular density. No suspicious masses, microc alcifications or architectural distortion. Again noted is a small cyst measuring 5 mm in the posterio r lateral RIGHT breast. Ultrasound on 08/08/2020 demonstrated a cyst. MM/[place] [id number] IMPRESSION: BI-RADS: 2-Benign FOLLOW UP: 1 Year Follow-up
== END 2022-07-21 07:48 | disposition home or self-care (01) ==
LOC: RAD 07:48
PROVIDERS: PCP Family Medicine; Visit Provider Family Medicine
DX: Z12.31 Encounter for screening mammogram for malignant neoplasm of breast (principal)
CPT/HCPCS: 77063; 77067

== ENCOUNTER 2022-08-29 12:30 | Emergency (ER) | payer OTHER, SELFPAY ==
[2022-08-29 12:31] VITALS: BP 153/91; PULSE 75; RESP 18; TEMP 36.9; O2SAT 96; BMI 34.5
--- NOTE | 2022-08-29 12:31 | ECG_ITS ---
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 Measurements Intervals Bitely Rate: 72 P: 37 VT: 157 QRS: 12 QRSD: 93 T: 21 QT: 384 QTc: 421 Interpretive Statements SINUS RHYTHM No previous ECG available for comparison Electronically Signed On 08-29-2022 21:59:44 DOUGH RAISER by Sejal Alcazar M.D. [id number]
--- NOTE | 2022-08-29 12:31 | XR_ITS ---
WS: [id number] PORTABLE CHEST HISTORY: chest pain COMPARISON: 01/07/2021 Lungs are clear and well expanded. No pleural effusion or pneumothorax. Cardiac size: Normal. Mediastinum/Aorta: Normal mediastinum. No osseous abnormality seen. XR/XR chest 1V portable [id number] IMPRESSION: Unremarkable portable chest.
[2022-08-29 13:04] LABS: Basophils % 0.6 %; Eosinophils # 0.2 10^3/uL (0.0-0.8); Hematocrit 38.7 % (37.0-47.0); Lymphocytes # 2.4 10^3/uL (0.8-4.8); Lymphocytes % 34.6 %; Mean Corpuscular Hemoglobin 25.3 pg (28.0-34.0); Mean Corpuscular Volume 81.6 fl (81-99); Mean Platelet Volume 10.5 fL (7.4-10.4); Monocytes # 0.6 10^3/uL (0.2-0.9); Monocytes % 8.1 %; Neutrophils # 3.69 10^3/uL (1.8-7.7); Neutrophils % 53.6 %; Nucleated Red Blood Cells % 0 %; Platelet Count 386 10^3/cmm (130-400); Red Blood Count 4.74 10^6/uL (4.1-5.3); Red Cell Distribution Width 13.7 % (12.1-15.1); White Blood Count 6.9 10^3/uL (4.0-10.0)
--- NOTE | 2022-08-29 13:09 | ED_ITS ---
HPI - Chest Pain General: Chief Complaint: Chest Pain Stated Complaint: CHEST PAIN Time Seen by Provider: 08/29/22 12:33 Source: patient Mode of arrival: EMS Limitations: no limitations History of Present Illness: Patient is a nice 67-year-old female with a history of HTN, hyperlipidemia, hypothyroidism, and GERD here after she was sent here by her PCP office. Patient states approximately 5 days ago while at rest in [place] she began having what she describes as chest spasms . She states symptoms lasted approximately 20 minutes before subsiding on their own. Patient states she was asymptomatic for several days but states last night while shopping at [employer] she began having similar discomforts. She states that episode lasted approximately 5 minutes before subsiding. She initially thought spasms could be related to her esophagus/GERD. She states she knows her GERD symptoms are not under control and often complains of an acid taste in her throat. She also wonders if symptoms could be related to her esophagus as she has had to have this dilated previously. States she has an appointment with Dr. Willis 09/16 for endoscopy for furhter evaluation. Patient states she went to her PCP office today for evaluation and saw Dr. Neff who performed an EKG. EKG was concerning as patient had some inverted T waves to her anterior leads thus ambulance was called to bring patient to ED for further evaluation. Patient is not currently having any chest pain. She denies shortness of breath or difficulty breathing. She reports previous stress testing/echocardiogram years ago that was reportedly normal. Patient upon arrival to ED and during my assessment states she is not having any active pain. MD complaint: chest pain Onset (ago): day(s) Timing of current episode: episodic Prior episodes: No Onset: during rest Pain location: substernal Pain radiation: none Quality: other ( spasm ) Relieving factors: nothing Exacerbating factors: nothing Associated symptoms: Reports no associated symptoms; Deny abdominal pain, dyspnea, fever(s), nausea, palpitations, syncope or vom iting Treatment prior to arrival: aspirin, nitroglycerin and other (given at PCP office) Risk Factors: Coronary artery disease risk factors: hyperlipidemia and hypertension Thoracic aortic dissection risk factors: none Related Data: On Oral Contraceptives: No Review of Systems Const: Denies: fever(s), chills, body aches, fatigue or malaise Eyes: Denies: change in vision or blurry vision Card: Reports: chest pain (resolved currently); Denies: palpitations, irregular heart rhythm, edema, swelling of feet/ankles, lightheadedness, syncope, pre-syncope, dyspnea on exertion, orthopnea, leg pain with exertion or acrocyanosis Resp: Denies: dyspnea, productive cough, non-productive cough or pain on inspiration GI: Reports: heartburn; Denies: abdominal pain, nausea, vomiting, diarrhea or change in bowel habits : Denies: dysuria Musc: Denies: neck pain, back pain, extremity pain, extremity swelling or joint pain Skin/Breast: Denies: rash Neuro: Denies: numbness in extremities, weakness in extremities, sensory changes or dizziness PFSH ED PFSH: Medical History Allergy-induced asthma Depression GERD (gastroesophageal reflux disease) HTN (hypertension), benign Hypothyroidism Surgical History H/O esophagogastroduodenoscopy (01/07/21) Schatzki ring, small hiatal hernia, gastritis H/O tubal ligation History of colonoscopy Status post laparoscopic cholecystectomy (01/07/21) Family History Mother Hypertension Diabetes Denies family history of Dementia Social History Smoking and tobacco status: current every day smoker Second hand smoke exposure: No Alcohol intake: never Lives independently: Yes History of recent travel: No Special ema needs: No Physical Exam Const: COMMON NORMALS: no acute distress, patient oriented x3, no limitations, alert and well nourished GENERAL APPEARANCE: cooperative ORIENTATION/CONSCIOUSNESS: Yes awake, Yes oriented to person, Yes oriented to place and Yes oriented to time Chest: COMMONS NORMALS: normal inspection of the chest and normal palpation of entire chest wall Resp: COMMON NORMALS: normal respiratory effort and clear to auscultation bilaterally AUSCULTATION: clear to auscultation bilaterally Cardio: COMMON NORMALS: regular rate and regular rhythm RATE: regular rate RHYTHM: regular rhythm GI: COMMON NORMALS: Normal to inspection, nondistended, normoactive bowel sounds present, Soft to palpation and non-tender PALPATION: Yes Soft to palpation Extremity: COMMON NORMALS: no clubbing, cyanosis or edema, no calf tenderness and no pedal edema Neuro: COMMON NORMALS: patient oriented x3 SENSORIUM/ORIENTATION: Yes alert, Yes oriented to person, Yes oriented to place and Yes oriented to time Course Vital Signs: Vital signs: Vital Signs Temperature 98.4 F 08/29/22 12:31 Pulse Rate 94 08/29/22 16:04 Respiratory Rate 16 08/29/22 16:04 Blood Pressure 171/114 08/29/22 16:04 Pulse Oximetry 96 08/29/22 16:04 Oxygen Delivery Me thod 08/29/22 12:31 Oxygen Flow Rate 2 08/29/22 12:31 MDM - Chest Pain Medical Decision Making Patient is a 67-year-old female here after she was sent by PCP office for concerning EKG. Patient's history states she has had 2 episodes of what she describes as chest spasms over the past 4 to 5 days. Patient arrives to the ED in no acute distress. Blood pressure 150s/90s. Patient states she does have a longstanding history of GERD that is not under control. She has an endoscopy scheduled with Dr. Willis in approximately 2 weeks for further evaluation. Certainly symptoms could be related to this. She does have cardiac risk factors including hypertension and recently diagnosed hyperlipidemia. Her initial T wave inversions to her anterior leads performed at PCP office have resolved on subsequent EKGs here. Patient's baseline and 2-hour troponins are completely normal. CXR normal. She does not complain of any active chest pain. Case discussed with Dr. Dunne who reviewed EKGs/labs and feels patient can be comfortably discharged home with plans for outpatient stress testing/follow up with cardiology. Patient feels comfortable with this plan. Strict return to ED precautions given. Lab Data 08/29/22 12:45 08/29/22 12:45 Radiology Impressions Chest X-Ray 08/29/22 12:31 IMPRESSION: Unremarkable portable chest. Laboratory Results WBC 6.9 10^3/uL (4.0-10.0) 08/29/22 12:45 RBC 4.74 10^6/uL (4.1-5.3) 08/29/22 12:45 Hgb 12.0 g/dL (11.5-15.3) 08/29/22 12:45 Hct 38.7 % (37.0-47.0) 08/29/22 12:45 MCV 81.6 fl (81-99) 08/29/22 12:45 MCH 25.3 pg (28.0-34.0) L 08/29/22 12:45 MCHC 31.0 g/dL (30.0-36.0) 08/29/22 12:45 RDW 13.7 % (12.1-15.1) 08/29/22 12:45 Plt Count 386 10^3/cmm (130-400) 08/29/22 12:45 MPV 10.5 fL (7.4-10.4) H 08/29/22 12:45 Neut % (Auto) 53.6 % 08/29/22 12:45 Lymph % (Auto) 34.6 % 08/29/22 12:45 [place] % (Auto) 8.1 % 08/29/22 12:45 Eos % (Auto) 3.0 % 08/29/22 12:45 Baso % (Auto) 0.6 % 08/29/22 12:45 Neut # (Auto) 3.69 10^3/uL (1.8-7.7) 08/29/22 12:45 Lymph # (Auto) 2.4 10^3/uL (0.8-4.8) 08/29/22 12:45 [place] # (Auto) 0.6 10^3/uL (0.2-0.9) 08/29/22 12:45 Eos # (Auto) 0.2 10^3/uL (0.0-0.8) 08/29/22 12:45 Baso # (Auto) 0.0 10^3/uL (0.0-0.1) 08/29/22 12:45 Nucleated RBC % (auto) 0 % 08/29/22 12:45 Nucleated RBCs # 0.0 /100WBC 08/29/22 12:45 Sodium 137 mmol/L (136-145) 08/29/22 12:45 Potassium 4.0 mmol/L (3.5-5.1) 08/29/22 12:45 Chloride 102 mmol/L (98-107) 08/29/22 12:45 Carbon Dioxide 26 mmol/L (22-29) 08/29/22 12:45 Anion Gap 13.0 (5-19) 08/29/22 12:45 BUN 16 mg/dL (8-23) 08/29/22 12:45 Creatinine 0.9 mg/dL (0.5-0.9) 08/29/22 12:45 GFR Calculation 62.8 mL/min (90-130) L 08/29/22 12:45 Glucose 90 mg/dL (65-115) 08/29/22 12:45 Calculated Osmolality 285 mOsm/kg (285-295) 08/29/22 12:45 Calcium 9.3 mg/dL (8.5-10.5) 08/29/22 12:45 Total Bilirubin 0.3 mg/dL (0.15-1.2) 08/29/22 12:45 AST 22 U/L (0-32) 08/29/22 12:45 ALT 20 U/L (0-33) 08/29/22 12:45 Alkaline Phosphatase 105 U/L (35-105) 08/29/22 12:45 Troponin T Baseline 6 ng/L (0-10) 08/29/22 12:45 Troponin T 120 Minute 6.00 ng/L (0-10) 08/29/22 14:43 Delta Troponin T 0 ABS# (0-10) 08/29/22 14:43 Total Protein 7.4 g/dL (6.6-8.7) 08/29/22 12:45 Albumin 4.1 g/dL (3.5-5.2) 08/29/22 12:45 Globulin 3.3 g/dL (1.3-4.6) 08/29/22 12:45 EKG Data EKG 1: I personally reviewed and interpreted this EKG as follows: EKG interpretation date: 08/29/22 EKG interpretation time: 12:35 Prior EKG tracings: available for review Interpretation: Sinus rhythm Rate [address] depression in anterior leads-not as prominent when compared to EKG performed at 11:49 Dr. Neff's office EKG 2: I personally reviewed and interpreted this EKG as follows: EKG interpretation date: 08/29/22 EKG interpretation time: 14:36 Prior EKG tracings: available for review Interpretation: Sinus rhythm Rate [address] elevation or depression changes noted Previous concerning T wave inversions are no longer present Discharge Plan Discharge Patient Disposition: Home Clinical Impression: Atypical chest pain Condition: Stable Prescriptions: No Action levothyroxine 75 mcg capsule 75 mcg PO DAILY albuterol sulfate [Ventolin HFA] 90 mcg/actuation HFA aerosol inhaler 2 puff inhalation Q6H PRN (Reason: shortness of breath or wheezing) Qty: 8.5 0RF cetirizine [Zyrtec] 10 mg tablet 10 mg PO DAILY PRN (Reason: allergy symptoms) Qty: 30 0RF pantoprazole [Protonix] 40 mg tablet,delayed release (DR/EC) 40 mg PO DAILY Qty: 90 3RF sertraline 100 mg tablet See Rx Instructions .ROUTE .COMPLEX Qty: 90 1RF Dose Instruction: TAKE ONE TABLET BY MOUTH ONCE a DAY Rx Instructions: TAKE ONE TABLET BY MOUTH ONCE a DAY montelukast 10 mg tablet See Rx Instructions .ROUTE .COMPLEX Qty: 90 3RF Dose Instruction: TAKE ONE TABLET BY MOUTH ONCE a DAY Rx Instructions: TAKE ONE TABLET BY MOUTH ONCE a DAY fluticasone propionate 50 mcg/actuation spray,suspension 2 spray intranasal DAILY PRN (Reason: Allergy Symptoms) Qty: 16 5RF Rx Instructions: administer into each nostril enalapril maleate 20 mg tablet See Rx Instructions .ROUTE .COMPLEX Qty: 180 3RF Dose Instruction: TAKE ONE TABLET BY MOUTH TWICE DAILY Rx Instructions: TAKE ONE TABLET BY MOUTH TWICE DAILY Discharge Orders: Discharge ED (Routine); Ordered 08/29/22 Ordered By: Radha Wheat Referrals: Ton Aguirre, [Primary Care Provider] - Activity Restrictions/Additional Instructions: As we discussed case management should contact you early next week or maybe as soon as tomorrow to get you set up for a stress test and follow-up with cardiology. As we discussed continue current plan with Dr. Willis for endoscopy on 09/16. You need to return to the emergency department immediately for worsening or severe chest pain, shortness of breath, difficulty breathing, or any other concerns you may have. Coding Level of Care Code ED [employer] Leader for Matty Fwd Exam Detailed
[2022-08-29 13:13] LABS: Alanine Aminotransferase 20 U/L (0-33); Albumin Level 4.1 g/dL (3.5-5.2); Alkaline Phosphatase 105 U/L (35-105); Aspartate Amino Transferase 22 U/L (0-32); Blood Urea Nitrogen 16 mg/dL (8-23); Calcium 9.3 mg/dL (8.5-10.5); Carbon Dioxide 26 mmol/L (22-29); Chloride 102 mmol/L (98-107); Globulin 3.3 g/dL (1.3-4.6); Glomerular Filtration Rate 62.8 mL/min (90-130); Glucose 90 mg/dL (65-115); Osmolality Calculated 285 mOsm/kg (285-295); Sodium 137 mmol/L (136-145); Total Bilirubin 0.3 mg/dL (0.15-1.2); Total Protein 7.4 g/dL (6.6-8.7); Troponin(5th) Baseline 6 ng/L (0-10)
--- NOTE | 2022-08-29 14:36 | ECG_ITS ---
[facility] Test Date: 2022-08-29 Pat Name: Blanca Amanda Department: Room: Gender: Female Package Clerk: : 1955 Requested By: Radha Wheat Order Number: [id number] Maddy MD: Sejal Alcazar M.D. Measurements Intervals [place] Rate: 74 P: 40 CA: 159 QRS: 15 QRSD: 90 T: 17 QT: 374 QTc: 417 Interpretive Statements SINUS RHYTHM Compared to ECG 08/29/2022 12:35:47 No significant changes Electronically Signed On 08-29-2022 22:12:48 MOLDER BENCH by Sejal Alcazar M.D. [id number]
[2022-08-29 15:18] LABS: Troponin 5 2HR Delta 0 ABS# (0-10)
[2022-08-29 16:04] VITALS: BP 171/114; PULSE 94; RESP 16; O2SAT 96
--- NOTE | 2022-09-01 12:21 | DCPLANNER ---
Addendum entered by Liv Summers 11/05/22 15:40: Patient attended stress test appointment with heart care was rescheduled Addendum entered by Liv Summers 10/15/22 15:44: Appointment scheduled with heart care - was cancelled Stress test is scheduled for Saturday, November 05, 2022 at 10:30 Addendum entered by Liv Summers 09/04/22 13:49: Patient has a follow up appointment scheduled for Friday, October 07, 2022 at 3:[address] at [facility]. Clinic will call patient with appointment information. Original Note: contract associate manager had message to schedule a follow up appointment for patient with cardiology. contract associate manager sent patients information to the front office staff at [facility]. Patients information will be printed and reviewed. Clinic will call patient with appointment information. contract associate manager also had message to schedule an outpatient stress test for patient. contract associate manager faxed signed order for stress test to centralized scheduling, who will call patient with appointment information. contract associate manager also sent patients primary care physician notification that this test was ordered from the ER physician.
== END 2022-08-29 16:04 | disposition home or self-care (01) ==
PROVIDERS: Emergency Provider Physician Assistant; PCP Family Medicine
DX: R07.89 Other chest pain (principal); I10 Essential (primary) hypertension; F17.210 Nicotine dependence, cigarettes, uncomplicated
CPT/HCPCS: 71045; 80053; 84484; 85025; 93005; 99285

== ENCOUNTER 2022-11-05 10:25 | Outpatient (CLI) | payer OTHER, SELFPAY ==
--- NOTE | 2022-11-05 | ECG_ITS ---
[facility] Test Date: 2022-11-05 Pat Name: Blanca Amanda Department: Room: Gender: Female District Engineer: : 1955 Requested By: Radha Wheat Order Number: [id number] Castañeda MD: Everton Pino M.D. Interpretive Statements NAME OF STUDY: LEXISCAN SESTAMIBI STRESS TEST INDICATION: [Chest Pain] Procedure: At the baseline, the blood pressure was 145/94 mmHg with a heart rate of 80 bpm. The electrocardiogram showed normal sinus rhythm, normal axis with normal ST and T's. The Lexiscan was infused over a period of 20 seconds. A total of 0.4 mg of Lexiscan was infused. The stress phase was continued for a total of 5 minutes. Heart rate was at the end of stress phase was 94 bpm and a blood pressure of 145/94 mmHg. The EKG at the peak infusion revealed normal sinus rhythm with no significant ST-T wave changes. Sestamibi was injected 20 seconds after the Lexiscan infusion. Blood pressure at the end of recovery phase was 147/82mmHg with a heart rate of 89 bpm. Conclusion: 1. Normal EKG response to Lexiscan infusion 2. No Lexiscan induced chest pain or cardiac arrhythmia. 3. Normal blood pressure and heart rate response. 4. Sestamibi/sestamibi perfusion scan pending; see separate report. Electronically Signed On 11-09-2022 15:07:07 CDT by Everton Pino M.D. [id number]
[2022-11-05 10:35] VITALS: BMI 35.0
--- NOTE | 2022-11-05 10:40 | NMCV_ITS ---
NM susan perf SPECT r/s* [id number] Blanca Amanda Age: 67 Gender: F : 1955 Exam Date: 11/05/2022 10:40 Ordering Phys: Radha Wheat Technologist: SRUTHI Fernandez Exam Location: [facility] Indications: CHEST PAIN STRESS TEST Please see separate stress test report in [facility] for full findings IMAGE PROTOCOL Rest/Stress 1 Lexiscan Day Radiopharmaceutical Dose (mCi) Administration Site Administered by Rest: Tc-99m 10.6 IV SRUTHI Neri Sestamibi Stress:Tc-99m 33.0 IV SRUTHI Neri Sestamibi Rest: 05-Nov-2022 60 Discovery 630 Stress: 05-Nov-2022 30 Discovery 630 0.4mg Lexiscan. Images obtained in supine and prone position. SPECT RESULTS Technical Quality: Excellent Raw Data Analysis: Normal Image Corrections: No attenuation or motion correction applied Summed Stress Score: 0 Summed Rest Score: 0 Summed Difference Score: 0 PERFUSION FINDINGS SPECT images demonstrate homogeneous tracer distribution throughout the myocardium. FUNCTIONAL RESULTS (calculated via Gated SPECT) Stress Image LV EF (%): 83 Stress EDV (mL):72 TID: 0.95 Stress ESV (mL):12 FUNCTIONAL FINDINGS: There is normal left ventricular systolic function. IMPRESSIONS 1. Normal myocardial perfusion imaging with no evidence of ischemia 2. LV systolic function is normal Everton Pino MD (Electronically Signed) Final Date: 08 November 2022 14:19 S
[2022-11-05] MEDS: regadenoson 0.4 Mg/5 ml Syringe IVP (12:18)
[2022-11-05 12:56] VITALS: BP 133/88; PULSE 82
== END 2022-11-05 10:26 | disposition home or self-care (01) ==
PROVIDERS: Family Provider Electrodiagnostic Medicine; PCP Family Medicine; Visit Provider Physician Assistant
DX: R07.9 Chest pain, unspecified (principal)
CPT/HCPCS: 36415; 78452; 93017; 96374; A9500; J2785

== ENCOUNTER → 2022-11-18 17:06 | Outpatient (BNVA) | payer OTHER, SELFPAY | PROVIDERS: Family Provider Electrodiagnostic Medicine; PCP Family Medicine; Visit Provider Internal Medicine Pulmonary Disease | DX: K29.70 Gastritis, unspecified, without bleeding (principal); K21.9 Gastro-esophageal reflux disease without esophagitis; T78.40XA Allergy, unspecified, initial encounter | CPT/HCPCS: 36415; 82785; 86003 ==

== ENCOUNTER 2022-12-03 07:03 | Outpatient (CLI) | payer OTHER, SELFPAY | END 2022-12-03 07:04 | disposition home or self-care (01) | PROVIDERS: PCP Electrodiagnostic Medicine; Visit Provider Family Medicine | DX: J45.909 Unspecified asthma, uncomplicated (principal) | CPT/HCPCS: 94010; 94726; 94729 ==

== ENCOUNTER 2023-07-22 07:50 | Outpatient (CLI) | payer OTHER, SELFPAY ==
--- NOTE | 2023-07-22 08:07 | MM_ITS ---
WS: [id number] BILATERAL SCREENING DIGITAL TOMOSYNTHESIS MAMMOGRAM WITH CAD HISTORY: SCREEN COMPARISON: 07/21/2022, 07/17/2021 and 06/10/2018 Bilateral CC and MLO views with tomosynthesis and synthetic mammography submitted. Computer aided det ection analyzed. Breast composition: There are scattered areas of fibroglandular density. No suspicious masses, microc alcifications or architectural distortion. Benign calcifications RIGHT breast. IMPRESSION: MM/[place] [id number] BI-RADS: 2-Benign FOLLOW UP: 1 Year Follow-up
== END 2023-07-22 07:51 | disposition home or self-care (01) ==
LOC: RAD 07:50
PROVIDERS: Visit Provider Electrodiagnostic Medicine
DX: Z12.31 Encounter for screening mammogram for malignant neoplasm of breast (principal)
CPT/HCPCS: 77063; 77067

== ENCOUNTER 2024-09-12 10:45 | Outpatient (CLI) | payer MEDICARE, SELFPAY ==
--- NOTE | 2024-09-12 10:50 | MM_ITS ---
WS: [id number] BILATERAL SCREENING DIGITAL TOMOSYNTHESIS MAMMOGRAM WITH CAD HISTORY: SCREENING COMPARISON: 07/22/2023, 07/21/2022 Bilateral CC and MLO views with tomosynthesis and synthetic mammography submitted. Computer aided detection analyzed. Breast composition: The breasts are heterogeneously dense, which may obscure small masses. No suspicious masses, microcalcifications or architectural distortion. Benign calcifications RIGHT breast. MM/MM scr BI tomosynthesis [id number] IMPRESSION: BI-RADS: 2 - Benign FOLLOW UP: 1 Year Follow-up
== END 2024-09-12 10:46 | disposition home or self-care (01) ==
LOC: RAD 10:48
PROVIDERS: PCP Electrodiagnostic Medicine; Visit Provider Electrodiagnostic Medicine
DX: Z12.31 Encounter for screening mammogram for malignant neoplasm of breast (principal); R92.333 Mammographic heterogeneous density, bilateral breasts; R92.1 Mammographic calcification found on diagnostic imaging of breast
CPT/HCPCS: 77063; 77067

== ENCOUNTER → 2024-10-03 10:44 | Outpatient (BNVA) | payer MEDICARE, SELFPAY | PROVIDERS: PCP Electrodiagnostic Medicine; Visit Provider Nurse Practitioner Family | DX: L23.9 Allergic contact dermatitis, unspecified cause (principal); L82.1 Other seborrheic keratosis; L57.8 Other skin changes due to chronic exposure to nonionizing radiation; L81.4 Other melanin hyperpigmentation; D22.39 Melanocytic nevi of other parts of face | CPT/HCPCS: 99203 ==